=== PATIENT | female | born 1985 | race Two or more races ===

== ENCOUNTER 2018-03-26 22:32 | Emergency (ER) | payer OTHER ==
[~2018-03-26] VITALS: Ht 167.6 cm; Wt 97.5 kg
[~2018-03-26 22:32] MED LIST: GILPHEX TR1 TAB.SR . PO; TENCON CAPSULE1 CAP PO
[2018-03-27] MEDS ORDERED: NORFLEX100MG PO (01:36)
[2018-03-27] MEDS ORDERED: VOLTAREN-XR100 MG PO (01:36)
== END 2018-03-27 01:51 | disposition home or self-care (01) ==
LOC: ER 22:32
DX: M62.830 Muscle spasm of back (principal)

== ENCOUNTER 2018-10-15 08:38 | Emergency (ER) | payer OTHER ==
[~2018-10-15] VITALS: Ht 167.6 cm; Wt 102.1 kg
[~2018-10-15 08:38] MED LIST changes: +NORFLEX100MG PO; +VOLTAREN-XR100 MG PO
== END 2018-10-15 14:21 | disposition home or self-care (01) ==
LOC: ER 08:38
DX: R07.89 Other chest pain (principal)

== ENCOUNTER 2019-05-13 06:30 | Day surgery (SDC) | payer OTHER ==
[2019-05-13] MEDS ORDERED: RECTICARE30 GM TOP (09:34)
[2019-05-13] MEDS ORDERED: PERCOCET 5-3251 EACH PO (09:34)
== END 2019-05-13 14:50 | disposition home or self-care (01) ==
LOC: CIR.AMB 06:30
DX: K60.3 Anal fistula (principal)